=== PATIENT | male | born 1975 | race Caucasian/White ===

== ENCOUNTER 2023-09-25 09:22 | Outpatient (AMB) | payer OTHER, SELFPAY ==
[2023-09-25 09:37] VITALS: BP 160/90; PULSE 98; TEMP 36.6; O2SAT 99
--- NOTE | 2023-09-25 09:37 | AM.OFFWIN_ITS ---
Intake Vital Signs 09/25/23 09:37 Weight 111.13 kg BP 160/90 H Blood Pressure Location Rt brachial Position Sitting Pulse 98 Pulse Source Pulse Oximeter Temp 97.8 F Temp Source Oral Pulse Oximetry (%) 99 Oxygen Delivery Method Room Air Intake Visit Reasons: [employer] Bug bite Intake Note: Pt is here c/o bug bite on his stomach that he got at the end of July 2023. 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 He thinks it went away for a little while but then came back a few days ago however he is unsure of it ever went away completely. He reports he works outside often. Denies fevers, chills, haroon int pain, headache, vision changes, chest pain and shortness of breath. Physical exam with a small maculopapular lesion in epigastric region. No overlying erythema or warmth. No streaking. History and physical exam concerning for possible tick-borne illness. Plan at this time labs. Educated patient on diagnosis and treatment plan, answered all question, patient verbalizes understanding. At this time patient will be discharged home, advised to return with new or worsening symptoms. Educated on worrisome signs and symptoms and when to return. At this time I feel comfortable discharge home. [facility] Social History Patient Tobacco Use Status: Never used Tobacco Review of Systems Const All systems reviewed & are unremarkable except as noted in HPI and below Physical Exam Vital Signs: vss Appearance: Alert.? Oriented X3.? No acute distress.? Head: Normocephalic, atraumatic, no step-offs or deformities Eyes: Pupils equal, round and reactive to light.? CVS: Normal heart rate and rhythm.? Pulses normal.? Respiratory: No respiratory distress.? Breath sounds normal.? Abdomen: Soft and nontender.? Skin: Skin warm and dry.? Normal skin color.? Normal skin turgor.? small maculopapular lesion in epigastric region. No overlying erythema or warmth. No streaking. Extremities: No lower extremity edema.? No calf ttp. 5/5 strength to bilateral upper and lower extremities Neuro: Oriented X 3.? No motor deficit.? No sensory deficit. CN 2-12 intact Assessment & Plan Assessment & Plan (1) Rash: Code(s): R21 - Rash and other nonspecific skin eruption Plan Take your medications as prescribed. If you were prescribed antibiotics today, it is important that you take your medication to their entirety, do not skip any doses, do not finish them early. Follow-up with your primary care provider this week. Return to the emergency department with new or worsening symptoms. Such as fevers, chills, chest pain, shortness of breath, nausea, vomiting, dizziness, headache, vision changes, lethargy In case of emergency call 911 Orders: Orders Tick-borne Disease Molecular Today R21 - Rash and other nonspecific skin eruption Lyme IgG/IgM w/reflex to WB Today R21 - Rash and other nonspecific skin eruption Coding Level of Care Code Est Pt Level 3 (30253) Diagnoses Rash R21
== END 2023-09-25 11:31 | disposition home or self-care (01) ==
PROVIDERS: PCP Internal Medicine; Visit Provider Physician Assistant
DX: R21 Rash and other nonspecific skin eruption (principal)
CPT/HCPCS: 99213

== ENCOUNTER 2023-09-25 09:46 | Outpatient (REF) | payer OTHER, SELFPAY ==
[2023-09-26 20:13] LABS: Lyme Abs Screen <0.90 index
[2023-09-27 22:48] LABS: A. Phagocytphilium DNA,RT-PCR NOT DETECTED (NOT DETECTED); Babesia Microti DNA, RT-PCR NOT DETECTED (NOT DETECTED); Borrelia Miyamotoi,DNA RT-PCR NOT DETECTED (NOT DETECTED); E.Chaffeensis DNA RT-PCR NOT DETECTED (NOT DETECTED); Lyme(Borrelia ssp)DNA RT-PCR NOT DETECTED (NOT DETECTED)
== END 2023-09-25 09:47 | disposition home or self-care (01) ==
LOC: HO.HMGCLDS 09:46
PROVIDERS: PCP Internal Medicine; Visit Provider Physician Assistant
DX: R21 Rash and other nonspecific skin eruption (principal)
CPT/HCPCS: 36415; 86617; 86618; 87468; 87469; 87478; 87484; 87798